=== PATIENT | female | born 1950 | race Caucasian/White ===

== ENCOUNTER 2018-10-20 22:02 | Emergency (ER) | payer OTHER ==
[~2018-10-20] VITALS: Ht 157.5 cm; Wt 120.2 kg
[2018-10-20 22:40] VITALS: BP 156/95
--- NOTE | 2018-10-20 23:31 | PHYS DOC ---
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 [] HENT: Normocephalic, atraumatic, bilateral external ears normal, oropharynx moist, no oral exudates, nose normal. [] Eyes: PERRLA, EOMI, conjunctiva normal, no discharge. [] Neck: Normal range of motion, no tenderness, supple, no stridor. [] Pulmonary: Normal respiratory effort no increased work of breathing no obvious chest wall trauma Abdomen: Bowel sounds normal, soft, no tenderness, no masses, no pulsatile masses. [] Skin: Warm, dry, no erythema, no rash. [] Back: No tenderness, no CVA tenderness. [] Extremities: Tenderness to palpation noted left proximal humerus as well as left inferior patella range of motion is slightly limited by pain but still able to do so Neurologic: Alert and oriented X 3, normal motor function, normal sensory function, no focal deficits noted. [] Psychologic: Affect normal, judgement normal, mood normal. [] Current Patient Data Vital Signs Vital Signs Date Time Temp Pulse Resp B/P (MAP) Pulse Ox O2 Delivery O2 Flow Rate FiO2 10/20/18 22:40 97.9 95 17 156/95 (115) 96 Room Air 97.9 EKG EKG [] Radiology/Procedures Radiology/Procedures [] Course & Med Decision Making Course & Med Decision Making Pertinent Labs and Imaging studies reviewed. (See chart for details) []My interpretation of shoulder and knee x-ray was negative acute no obvious fracture was seen patient was reassured reassurance provided return precautions given Dragon Disclaimer Dragon Disclaimer This electronic medical record was generated, in whole or in part, using a voice recognition dictation system. Departure Departure Impression: Primary Impression: Shoulder pain Disposition: 01 HOME, SELF-CARE Condition: STABLE Patient Instructions: Shoulder Pain, [id number] FELISA COLEMAN MD Oct 20, 2018 23:31
--- NOTE | 2018-10-20 23:49 | RAD ---
EXAM: LEFT SHOULDER 3 VIEWS. HISTORY: Left shoulder pain after a fall. COMPARISON: None. FINDINGS: No fractures are identified. Glenohumeral joint spaces and alignment are maintained. Acromioclavicular osteoarthritis is moderate. Inferiorly directed clavicular spurs measure up to 4 mm. 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 IMPRESSION: 1. No fracture or malalignment. 2. Moderate acromioclavicular osteoarthritis with inferiorly directed spurring. Correlate for impingement. Electronically signed by: Anju Baxter MD (10/20/2018 11:46 PM) [facility]
--- NOTE | 2018-10-20 23:50 | RAD ---
EXAM: LEFT KNEE, 3 VIEWS. HISTORY: Left knee pain. Fall. COMPARISON: None. FINDINGS: No fractures are identified. There is moderate to severe medial compartment predominant osteoarthritis. The patellofemoral and lateral compartments are mildly to moderately affected. Alignment is normal. There is no joint effusion. IMPRESSION: 1. 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 Electronically signed by: Anju Baxter MD (10/20/2018 11:47 PM) [facility]
== END 2018-10-20 23:29 | disposition home or self-care (01) ==
LOC: ER 22:02
DX: M25.512 Pain in left shoulder (principal); G89.11 Acute pain due to trauma; M25.562 Pain in left knee; M17.12 Unilateral primary osteoarthritis, left knee; M19.012 Primary osteoarthritis, left shoulder; E78.00 Pure hypercholesterolemia, unspecified; I10 Essential (primary) hypertension; W01.0XXA Fall on same level from slipping, tripping and stumbling without subsequent striking against object, initial encounter; Y93.89 Activity, other specified; Y92.89 Other specified places as the place of occurrence of the external cause; Y99.8 Other external cause status
CPT/HCPCS: 73030; 73562; 99284